=== PATIENT | female | born 1975 | race Caucasian/White ===

== ENCOUNTER → 2016-05-26 | Outpatient (CLI) | payer BC ==
--- NOTE | 2016-05-26 09:05 | US ---
EXAMINATION TYPE: US pelvic complete DATE OF EXAM: 05/26/2016 8:45 AM COMPARISON: No previous CLINICAL HISTORY: N91.2 Amenorrhea. Amenorrhea x 3 months, history of and ablation, 2, para 2 TECHNIQUE: Transabdominal (TA) Date of LMP: 3 months ago EXAM MEASUREMENTS: Uterus: 9.3 x 3.7 x 4.8 cm Endometrial Stripe: 0.5 cm Right Ovary: 3.0 x 2.9 x 2.0 cm Left Ovary: 2.9 x 2.6 x 1.9 cm 1. Uterus: anteverted, heterogeneous echotexture 2. Endometrium: measures 0.5cm, LMP 3 months ago 3. Right Ovary: wnl 4. Left Ovary: wnl 5. Bilateral Adnexa: wnl 6. Posterior cul-de-sac: wnl IMPRESSION: No significant abnormality appreciated.
== END | disposition home or self-care (01) ==
LOC: RADUSWWP 08:29
PROVIDERS: ATTEND Obstetrics & Gynecology
DX: N91.2 Amenorrhea, unspecified (principal)
CPT/HCPCS: 76856; 84439; 84443

== ENCOUNTER → 2016-11-23 | Outpatient (CLI) | payer BC ==
--- NOTE | 2016-11-23 11:34 | MM ---
Reason for exam: additional evaluation requested from prior study. Last mammogram was performed 1 year and 7 months ago. History: Family history of premenopausal breast cancer in aunt at age 40. Took hormonal contraceptives for 10 years. Physical Findings: Nurse did not find any significant physical abnormalities on exam. [facility] Diagnostic Mammo w CAD ISHMAEL Bilateral CC and MLO view(s) were taken. Prior study comparison: May 07, 2015, bilateral MG 3d screening mammo w/cad. July 16, 2011, bilateral digital screening mammo w/CAD. The breast tissue is heterogeneously dense. This may lower the sensitivity of mammography. Prior focal asymmetry is unchanged. No significant new findings when compared with previous films. These results were verbally communicated with the patient and result sheet given to the patient on 11/23/16. ASSESSMENT: Benign, BI-RAD 2 RECOMMENDATION: Routine screening mammogram of both breasts in 1 year.
== END ==
LOC: RADMAMWWP 10:25
PROVIDERS: ATTEND Obstetrics & Gynecology
DX: R92.8 Other abnormal and inconclusive findings on diagnostic imaging of breast (principal)

== ENCOUNTER → 2017-03-14 | Outpatient (CLI) | payer BC ==
--- NOTE | 2017-03-14 09:06 | CT ---
EXAMINATION TYPE: CT cervical spine wo con DATE OF EXAM: 03/14/2017 COMPARISON: NONE HISTORY: Patient complains of neck pain and abnormal xray at doctors office. CT DLP: 490.[address] of the cervical spine was performed with bone and soft tissue window settings submitted . Coronal and sagittal reconstruction is obtained. C2-3, C3-4 and C4-5 are all within normal limits. C5-6: Mild degenerative disc space narrowing. Left paracentral disc protrusion effaces the ventral th ecal sac. Mild left foraminal encroachment. No central stenosis appreciated. C6-7: [id number] degenerative disc space narrowing. Posterior disc bulge with partial encapsula ting spur resulting in disc endplate complex. Mild effacement ventral thecal sac. No definite central stenosis or foraminal encroachment. C7-T1: Within normal limits There is mild reversal of the normal cervical lordosis which can be seen in patients with muscle spas ticity. No evidence for fracture or malalignment. IMPRESSION: 1. Degenerative disc disease as discussed. 2. Left paracentral disc protrusion at C5-6 and disc endplate complex at C6-7. See above.
== END | disposition home or self-care (01) ==
LOC: RADCTMAIN 08:19
PROVIDERS: ATTEND Family Medicine
DX: M48.02 Spinal stenosis, cervical region (principal); M50.222 Other cervical disc displacement at C5-C6 level; M50.322 Other cervical disc degeneration at C5-C6 level; M53.82 Other specified dorsopathies, cervical region
CPT/HCPCS: 72125

== ENCOUNTER 2020-01-11 18:45 | Emergency (ER) | payer BC ==
[2020-01-11 19:10] VITALS: BP 151/95; PULSE 89; RESP 18; TEMP 98.4
--- NOTE | 2020-01-11 19:37 | XR ---
EXAMINATION TYPE: XR abdomen 2V DATE OF EXAM: 01/11/2020 COMPARISON: NONE HISTORY: Epigastric pain TECHNIQUE: 4 views FINDINGS: Supine and upright views were obtained. There are clips from cholecystectomy. There is no s ign of intestinal obstruction or pneumoperitoneum. Fecal pattern is normal. There is no evidence of a mass. Bony structures are intact. There are no pathologic calcifications over the kidneys. IMPRESSION: Nonacute abdomen.
[2020-01-11 20:09] LABS: Basophils # (A) 0.1 k/uL (0-0.2); Basophils % (A) 1 %; Eosinophils # (A) 0.2 k/uL (0-0.7); Eosinophils % (A) 2 %; HCT 38.9 % (34.0-46.0); HGB 12.9 gm/dL (11.4-16.0); Lymphocytes # (A) 1.4 k/uL (1.0-4.8); Lymphocytes % (A) 17 %; MCH 30.2 pg (25.0-35.0); MCHC 33.2 g/dL (31.0-37.0); MCV 90.8 fL (80.0-100.0); Mean Platelet Volume 7.5; Monocytes # (A) 0.5 k/uL (0-1.0); Monocytes % (A) 6 %; Neutrophils # (A) 5.7 k/uL (1.3-7.7); Neutrophils % (A) 72 %; Platelet Count 309 k/uL (150-450); RBC 4.29 m/uL (3.80-5.40); RDW 13.1 % (11.5-15.5); WBC 7.8 k/uL (3.8-10.6)
[2020-01-11 20:16] LABS: ALT 47 U/L (4-34); AST 32 U/L (14-36); African American GFR (CKD) >90 (>60 ml/min/1.73 sqM); Albumin 4.5 g/dL (3.5-5.0); Alkaline Phosphatase 66 U/L (38-126); Amylase 46 U/L (30-110); Anion Gap 8 mmol/L; Blood Urea Nitrogen 13 mg/dL (7-17); Calcium 9.5 mg/dL (8.4-10.2); Carbon Dioxide 22 mmol/L (22-30); Chloride 106 mmol/L (98-107); Glucose 116 mg/dL (74-99); Lipase 43 U/L (23-300); Non-African American GFR(CKD) >90 (>60 ml/min/1.73 sqM); Potassium 4.1 mmol/L (3.5-5.1); Sodium 136 mmol/L (137-145); Total Bilirubin 0.4 mg/dL (0.2-1.3); Total Protein 7.2 g/dL (6.3-8.2)
[2020-01-11] MEDS ORDERED: PANTOPRAZOLE 40 MG/10 ML VIAL IVP STA (21:01)
[2020-01-11] MEDS ORDERED: KETOROLAC 15 MG/ML 1 ML VIAL IVP STA (21:01)
[2020-01-11 21:42] LABS: Appearance,Urine Clear (Clear); Bilirubin,Urine Negative (Negative); Blood,Urine Negative (Negative); Color,Urine Light Yellow; Glucose,Urine (UA) Negative (Negative); Ketones,Urine 2+ (Negative); Leukocyte Esterase,Urine Negative (Negative); Nitrite,Urine Negative (Negative); PH, Urine 5.5 (5.0-8.0); Protein,Urine Negative (Negative); Specific Gravity,Urine 1.015 (1.001-1.035); Urobilinogen,Urine <2.0 mg/dL (<2.0)
--- NOTE | 2020-01-11 22:09 | CT ---
EXAMINATION TYPE: CT abdomen pelvis w con DATE OF EXAM: 01/11/2020 COMPARISON: None HISTORY: Epigastric pain. CT DLP: 1507.7 mGycm Automated exposure control for dose reduction was used. CONTRAST: Performed with IV Contrast, patient injected with 100 mL of Isovue 300. Images were obtained from the diaphragm to the floor the pelvis with IV contrast. Lung bases are clear. There is no pleural effusion. Heart size is normal. Liver spleen stomach pancreas appear normal. Bile ducts are not dilated. There are clips from cholecy stectomy. There is no adrenal mass. Kidneys show satisfactory contrast opacification. There is no hydronephrosi s. Delayed images show normal renal excretion. There is no retroperitoneal adenopathy. Ureters are no t dilated. Bladder distends smoothly. There is no inguinal hernia. Uterus is anteverted. There is no free fluid in the pelvis. Lumbar vertebra show normal spacing and a lignment. Bony pelvis is intact. Hip joints are intact. There are clips from appendectomy. There is no mesenteric edema. There is no ascites or free air. The re is no bowel obstruction. IMPRESSION: Negative exam. I do not see a cause for epigastric pain.
--- NOTE | 2020-01-11 22:49 | ED ---
Abdominal Pain HPI - General Chief Complaint: Abdominal Pain Stated Complaint: Abd pain Time Seen by Provider: 01/11/20 19:05 Source: patient Mode of arrival: ambulatory Limitations: no limitations - History of Present Illness Initial Comments: Patient is a 44-year-old previously healthy female presents emergency department with reported abdominal pain. Reports to epigastric abdominal pain which started around 2 PM today after eating a meal. Patient states this is her fourth episode since August. States the pain is similar. She is status post chol ecystectomy however reports the pain is similar to when she had no stones. Pain is intermittent and colicky. She has been following with her primary care physician for these episodes and was placed on omeprazole for one month. She denies any associated vomiting. No chest pain or shortness of breath. No changes in her bowel or bladder habits. Denies any provocative factors. 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 - Related Data Home Medications Medication Instructions Recorded Confirmed Elderberry Gummy 1 cap PO DAILY 01/11/20 01/11/20 Multivitamins, Thera [Multivitamin 1 tab PO DAILY 01/11/20 01/11/20 (formulary)] Ubrogepant [Ubrelvy] 50 mg PO DAILY PRN 01/11/20 01/11/20 Previous Rx's Medication Instructions Recorded Omeprazole [PriLOSEC] 20 mg PO AC-BRKFST #30 cap 01/11/20 Allergies Allergy/AdvReac Type Severity Reaction Status Date / Time No Known Allergies Allergy Verified 01/11/20 21:11 Review of Systems ROS Statement: Those systems with pertinent positive or pertinent negative responses have been documented in the HPI. ROS Other: All systems not noted in ROS Statement are negative. Past Medical History Past Medical History: No Reported History History of Any Multi-Drug Resistant Organisms: None Reported Past Surgical History: Section, Cholecystectomy Additional Past Surgical History / Comment(s): uterine ablation Past Psychological History: No Psychological Hx Reported Smoking Status: Never smoker Past Alcohol Use History: Occasional Past Drug Use History: None Reported General Exam Limitations: no limitations Course Vital Signs 01/11/20 19:03 Temperature 98.4 F Pulse Rate 89 Respiratory 18 Rate Blood Pressure 151/95 O2 Sat by Pulse 97 Oximetry Medical Decision Making - Medical Decision Making Upon arrival patient is placed into room 15. A thorough history and physical exam was performed. Laboratory studies were conducted. Patient was given Toradol and Protonix for pain. Laboratory studies are unremarkable. CT of the abdomen and pelvis was performed which demonstrates no acute abnormality. Results are discussed with the patient. Did recommend treatment with omep razole. Prescription is sent to the pharmacy. Patient does have a follow-up appointment on the of this month to have an EGD performed by Dr. Sherman. Did recommend calling on Tuesday to see if they have a sooner appointment. Also follow-up with her primary care physician. Return to the emergency room for any new or worsening symptoms. Patient was discharged in stable condition - Lab Data Result diagrams: 01/11/20 19:51 01/11/20 19:51 Lab Results 01/11/20 01/11/20 01/11/20 Range/Units 19:51 19:51 19:51 WBC 7.8 (3.8-10.6) k/uL RBC 4.29 (3.80-5.40) m/uL Hgb 12.9 (11.4-16.0) gm/dL Hct 38.9 (34.0-46.0) % MCV 90.8 (80.0-100.0) fL MCH 30.2 (25.0-35.0) pg MCHC 33.2 (31.0-37.0) g/dL RDW 13.1 (11.5-15.5) % Plt Count 309 (150-450) k/uL MPV 7.5 Neutrophils % 72 % Lymphocytes % 17 % Monocytes % 6 % Eosinophils % 2 % Basophils % 1 % Neutrophils # 5.7 (1.3-7.7) k/uL Lymphocytes # 1.4 (1.0-4.8) k/uL Monocytes # 0.5 (0-1.0) k/uL Eosinophils # 0.2 (0-0.7) k/uL Basophils # 0.1 (0-0.2) k/uL Sodium 136 L (137-145) mmol/L Potassium 4.1 (3.5-5.1) mmol/L Chloride 106 (98-107) mmol/L Carbon Dioxide 22 (22-30) mmol/L Anion Gap 8 mmol/L BUN 13 (7-17) mg/dL Creatinine 0.71 (0.52-1.04) mg/dL Est GFR (CKD-EPI)AfAm >90 (>60 ml/min/1.73 sqM) Est GFR (CKD-EPI)NonAf >90 (>60 ml/min/1.73 sqM) Glucose 116 H (74-99) mg/dL Plasma Lactic Acid Patricio 1.2 (0.7-2.0) mmol/L Calcium 9.5 (8.4-10.2) mg/dL Total Bilirubin 0.4 (0.2-1.3) mg/dL AST 32 (14-36) U/L ALT 47 H (4-34) U/L Alkaline Phosphatase 66 (38-126) U/L Total Protein 7.2 (6.3-8.2) g/dL Albumin 4.5 (3.5-5.0) g/dL Amylase 46 (30-110) U/L Lipase 43 (23-300) U/L Urine Color Urine Appearance (Clear) Urine pH (5.0-8.0) Ur Specific [place] (1.001-1.035) Urine Protein (Negative) Urine Glucose (UA) (Negative) Urine Ketones (Negative) Urine Blood (Negative) Urine Nitrite (Negative) Urine Bilirubin (Negative) Urine Urobilinogen (<2.0) mg/dL Ur Leukocyte Esterase (Negative) 01/11/20 Range/Units 21:15 WBC (3.8-10.6) k/uL RBC (3.80-5.40) m/uL Hgb (11.4-16.0) gm/dL Hct (34.0-46.0) % MCV (80.0-100.0) fL MCH (25.0-35.0) pg MCHC (31.0-37.0) g/dL RDW (11.5-15.5) % Plt Count (150-450) k/uL MPV Neutrophils % % Lymphocytes % % Monocytes % % Eosinophils % % Basophils % % Neutrophils # (1.3-7.7) k/uL Lymphocytes # (1.0-4.8) k/uL Monocytes # (0-1.0) k/uL Eosinophils # (0-0.7) k/uL Basophils # (0-0.2) k/uL Sodium (137-145) mmol/L Potassium (3.5-5.1) mmol/L Chloride (98-107) mmol/L Carbon Dioxide (22-30) mmol/L Anion Gap mmol/L BUN (7-17) mg/dL Creatinine (0.52-1.04) mg/dL Est GFR (CKD-EPI)AfAm (>60 ml/min/1.73 sqM) Est GFR (CKD-EPI)NonAf (>60 ml/min/1.73 sqM) Glucose (74-99) mg/dL Plasma Lactic Acid Patricio (0.7-2.0) mmol/L Calcium (8.4-10.2) mg/dL Total Bilirubin (0.2-1.3) mg/dL AST (14-36) U/L ALT (4-34) U/L Alkaline Phosphatase (38-126) U/L Total Protein (6.3-8.2) g/dL Albumin (3.5-5.0) g/dL Amylase (30-110) U/L Lipase (23-300) U/L Urine Color Light Yellow Urine Appearance Clear (Clear) Urine pH 5.5 (5.0-8.0) Ur Specific [place] 1.015 (1.001-1.035) Urine Protein Negative (Negative) Urine Glucose (UA) Negative (Negative) Urine Ketones 2+ H (Negative) Urine Blood Negative (Negative) Urine Nitrite Negative (Negative) Urine Bilirubin Negative (Negative) Urine Urobilinogen <2.0 (<2.0) mg/dL Ur Leukocyte Esterase Negative (Negative) Disposition Clinical Impression: Epigastric pain Disposition: HOME SELF-CARE Condition: Stable Instructions (If sedation given, give patient instructions): Epigastric Pain (ED) Additional Instructions: Please follow up with your primary care physician and surgeon. Return to the ED for any new or worsening symptoms. Prescriptions: Omeprazole [PriLOSEC] 20 mg PO AC-BRKFST #30 cap Is patient prescribed a controlled substance at d/c from ED?: No Referrals: Madi Quintana MD [Primary Care Provider] - 1-2 days Carlos Navarro MD [Medical Doctor] - 1-2 days Time of Disposition: 22:49
== END 2020-01-11 23:25 | disposition home or self-care (01) ==
LOC: EC 18:45
DX: R10.13 Epigastric pain (principal); Z90.49 Acquired absence of other specified parts of digestive tract
CPT/HCPCS: 36415; 80053; 82150; 83605; 83690; 85025; 81003; 74019; 74177; 99284; 96374; 96375; J1885; C9113; Q9967

== ENCOUNTER 2020-01-29 10:08 | Day surgery (SDC) | payer BC ==
[2020-01-28 08:51] VITALS: BMI 35.6
[~2020-01-29 10:08] MED LIST: LACTATED RINGERS 1,000 ML IV SCH; LIDOCAINE 1% (10MG/ML) FOR IV START INTRADERMA PRN
[2020-01-29 10:37] VITALS: TEMP 98
[2020-01-29] MEDS ORDERED: PROPOFOL 10 MG/ML 50 ML VIAL IV ONE (11:35)
--- NOTE | 2020-01-29 11:42 | P.GSHP ---
History of Present Illness H&P Date: 01/29/20 Chief Complaint: Abdominal pain Patient here today for upper endoscopy. She has had complaints of epigastric pain and slightly to the right for the last several months. Usually comes on as an attack that lasted from 5-12 hours at a time. We'll have an attack every month or 2. No nausea or vomiting. No change in bowel habits. No rectal bleeding or melena. Past Medical History Past Medical History: No Reported History Additional Past Medical History / Comment(s): stomach pains History of Any Multi-Drug Resistant Organisms: None Reported Past Surgical History: Section, Cholecystectomy Additional Past Surgical History / Comment(s): uterine ablation Past Anesthesia/Blood Transfusion Reactions: No Reported Reaction Smoking Status: Never smoker - Past Family History Mother Family Medical History: AFIB, Cancer Additional Family Medical History / Comment(s): skin CA Father Family Medical History: AFIB Medications and Allergies Home Medications Medication Instructions Recorded Confirmed Type Elderberry Gummy 1 cap PO DAILY 01/11/20 01/28/20 History Multivitamins, Thera [Multivitamin 1 tab PO DAILY 01/11/20 01/28/20 History (formulary)] Omeprazole [PriLOSEC] 20 mg PO AC-BRKFST #30 cap 01/11/20 01/28/20 Rx Ubrogepant [Ubrelvy] 50 mg PO DAILY PRN 01/11/20 01/28/20 History Everyday Relief Supplement 1 tab PO TID-W/MEALS 01/28/20 History Allergies Allergy/AdvReac Type Severity Reaction Status Date / Time No Known Allergies Allergy Verified 01/29/20 10:27 Surgical - Exam Vital Signs Temp Pulse Resp BP Pulse Ox 98 F 88 16 129/69 97 01/29/20 10:36 01/29/20 10:36 01/29/20 10:36 01/29/20 10:36 01/29/20 10:36 Physical exam: General: Well-developed, well-nourished HEENT: Normocephalic, sclerae nonicteric Abdomen: Nontender, nondistended Extremities: No edema Neuro: Alert and oriented Assessment and Plan (1) Epigastric pain Narrative/Plan: Will proceed with upper endoscopy. Current Visit: No Status: Acute Code(s): R10.13 - EPIGASTRIC PAIN SNOMED Code(s): 22786673
--- NOTE | 2020-01-29 11:58 | P.PCN ---
Date of Procedure: 01/29/20 Procedure(s) Performed: Preoperative Dx: Epigastric pain Postoperative Dx: Gastritis, small hiatal hernia Procedure: EGD with Bx Anesthesia: Sedation Endoscopist: Dr. Navarro Specimens: Antrum Endoscopic Procedure: The patient was on the endoscopy table in the left decubitus position. The Olympus gastroscope was inserted into the oropharynx and passed under direct visualization to the region of the third portion of the duodenum. From that point the scope was slowly withdrawn inspecting all surfaces carefully. There were no neoplastic inflammatory or polypoid lesions throughout the duodenum. The pylorus was widely patent. The stomach was carefully inspected. There was gastritis present. A biopsy of the antrum took place to rule out H. pylori. Retroflexion revealed a small hiatal hernia. The GE junction was present 1.5-2 cm above the diaphragmatic hiatus. The esophagus itself appeared normal. The patient was then taken to the recovery room in stable condition per anesthesia guidelines. Recommendations: Await biopsy results. Continue workup of the patient's pain.
[2020-01-29 12:17] VITALS: BP 125/86; PULSE 71; RESP 18
== END 2020-01-29 12:34 | disposition home or self-care (01) ==
LOC: ORWHC2ENDO 10:08
PROVIDERS: ATTEND Surgery
DX: K29.00 Acute gastritis without bleeding (principal); K31.89 Other diseases of stomach and duodenum; K44.9 Diaphragmatic hernia without obstruction or gangrene; G43.909 Migraine, unspecified, not intractable, without status migrainosus; Z98.890 Other specified postprocedural states; Z90.49 Acquired absence of other specified parts of digestive tract; Z79.899 Other long term (current) drug therapy; Z82.49 Family history of ischemic heart disease and other diseases of the circulatory system; Z80.8 Family history of malignant neoplasm of other organs or systems
CPT/HCPCS: 81025; 88305; 43239; J2704

== ENCOUNTER → 2020-04-03 | Outpatient (CLI) | payer BC ==
--- NOTE | 2020-04-03 10:25 | MR ---
EXAMINATION TYPE: MR MRCP DATE OF EXAM: 04/03/2020 COMPARISON: CT abdomen and pelvis January 11, 2020 HISTORY: epigastric pain, Gallbladder removed Standard multiplanar, multisequence MRI departmental protocol Multiplanar, multisequence images of the abdomen were acquired. Diffusion weighted imaging was perfor med. Thin and thick slice MRCP imaging is performed on the MRI scanner. FINDINGS: Liver/gallbladder/pancreas/biliary system: Gallbladder noted surgically absent. Liver remains normal in size. There is diffuse signal dropout consistent with mild to moderate diffuse fatty infiltration. No concerning solid or cystic intrahepatic mass is identified. Pancreas is normal in size. MRCP imag ing shows no suspicious intrahepatic or extrahepatic biliary dilatation. Overlying crossing vessel fl ow is likely present just below the ranjith hepatis causing linear artifact coronal image 22 series 301 and MRCP imaging. No round ductal stones. Pancreatic duct not well seen due to poor distention. Visu alized portions unremarkable. Other: Lung bases remain grossly clear. The spleen and both adrenal glands appear within normal limit s. Persistent fullness right renal pelvis without calyceal dilatation or extrarenal pelvis. There eleanor ears to be persistent asymmetric mild left-sided hydronephrosis. Appendix noted surgically absent. No suspicious small or large bowel dilatation. No intra-abdominal a scites. Visualized osseous structures are intact. No suspicious greater than 1 cm intra-abdominal carol nopathy. IMPRESSION: [id number] diffuse fatty infiltration of liver. No intrahepatic or extrahepatic niels iary dilatation. Mild asymmetric left-sided hydronephrosis is thought present and is felt also presen t on review of comparison CT. No delayed excretion is noted.
== END | disposition home or self-care (01) ==
LOC: RADMRIMAIN 08:20
PROVIDERS: ATTEND Internal Medicine Gastroenterology
DX: K76.0 Fatty (change of) liver, not elsewhere classified (principal); N13.30 Unspecified hydronephrosis
CPT/HCPCS: 74181

== ENCOUNTER → 2020-10-06 | Outpatient (CLI) | payer BC ==
[2020-10-06 21:33] LABS: African American GFR (CKD) 126.7 (60.0-200.0); Albumin 4.6 g/dL (3.80-4.90); Albumin/Globulin Ratio 2.19 (1.60-3.17); Anion Gap 9.5 mmol/L (4.00-12.00); BUN/Creat Ratio 13.33 Ratio (12.00-20.00); Carbon Dioxide 23.5 mmol/L (21.6-31.8); Globulin 2.1 g/dL (1.6-3.3); Non-African American GFR(CKD) 109.3 (60.0-200.0); Potassium 4.1 mmol/L (3.5-5.5); Total Bilirubin 0.6 mg/dL (0.2-1.2); Total Protein 6.7 g/dL (6.2-8.2)
== END | disposition home or self-care (01) ==
LOC: LABWHC1 11:35
PROVIDERS: ATTEND Internal Medicine Gastroenterology
DX: R10.13 Epigastric pain (principal)
CPT/HCPCS: 36415; 80053

== ENCOUNTER 2021-04-20 10:34 | Observation (INO) | payer BC ==
[2021-04-20 12:09] LABS: ALT 173 U/L (4-34); AST 156 U/L (14-36); African American GFR (CKD) >90 (>60 ml/min/1.73 sqM); Albumin 4.8 g/dL (3.5-5.0); Alkaline Phosphatase 81 U/L (38-126); Amylase 47 U/L (30-110); Anion Gap 9 mmol/L; Blood Urea Nitrogen 6 mg/dL (7-17); Calcium 9.3 mg/dL (8.4-10.2); Carbon Dioxide 22 mmol/L (22-30); Chloride 106 mmol/L (98-107); Glucose 120 mg/dL (74-99); Lipase 28 U/L (23-300); Non-African American GFR(CKD) >90 (>60 ml/min/1.73 sqM); Potassium 3.9 mmol/L (3.5-5.1); Sodium 137 mmol/L (137-145); Total Bilirubin 1.3 mg/dL (0.2-1.3); Total Protein 7.8 g/dL (6.3-8.2)
[2021-04-20 12:14] LABS: Basophils % (A) 0 %; Eosinophils # (A) 0.1 k/uL (0-0.7); Eosinophils % (A) 1 %; HCT 44.4 % (34.0-46.0); HGB 14.8 gm/dL (11.4-16.0); Lymphocytes # (A) 1.3 k/uL (1.0-4.8); Lymphocytes % (A) 11 %; MCH 30.5 pg (25.0-35.0); MCHC 33.3 g/dL (31.0-37.0); MCV 91.4 fL (80.0-100.0); Mean Platelet Volume 7.8; Monocytes # (A) 0.8 k/uL (0-1.0); Monocytes % (A) 7 %; Neutrophils # (A) 9.4 k/uL (1.3-7.7); Neutrophils % (A) 81 %; Platelet Count 314 k/uL (150-450); RBC 4.86 m/uL (3.80-5.40); RDW 13.5 % (11.5-15.5); WBC 11.6 k/uL (3.8-10.6)
--- NOTE | 2021-04-20 12:22 | XR ---
EXAMINATION TYPE: XR KUB DATE OF EXAM: 04/20/2021 Comparison: None Clinical History: 45-year-old female right flank pain, abdominal pain Findings: Lung bases are clear. No evidence for free intraperitoneal air. Cholecystectomy clips. Dropped clip in the right lower quadrant. No dilated small bowel or air-fluid levels. No significant stool burden. No suspicious calcifications are radiographically apparent. Impression: No evidence for free air or bowel obstruction. No significant stool burden. Previous cholecystectomy. No suspicious calcification clearly identified.
[2021-04-20] MEDS ORDERED: SODIUM CHLORIDE 0.9% 500 ML 500 ML IV STA (12:27)
[2021-04-20] MEDS ORDERED: SODIUM CHLORIDE 0.9% 1,000 ML IV ONE ×2 (12:28→14:55)
[2021-04-20 12:34] LABS: Appearance,Urine Clear (Clear); Bacteria,Urine Rare /hpf; Bilirubin,Urine Negative (Negative); Blood,Urine Negative (Negative); Color,Urine Yellow; Glucose,Urine (UA) Negative (Negative); Ketones,Urine Negative (Negative); Leukocyte Esterase,Urine Negative (Negative); Mucus,Urine Moderate /hpf; Nitrite,Urine Negative (Negative); Protein,Urine 1+ (Negative); Specific Gravity,Urine 1.021 (1.001-1.035); Squamous Epithelial Cell,Urine 1 /hpf (0-4); WBC,Urine 2 /hpf (0-5)
--- NOTE | 2021-04-20 13:23 | ED ---
General Adult HPI - General Chief complaint: Abdominal Pain Stated complaint: Abd pain Time Seen by Provider: 04/20/21 12:00 Source: patient, RN notes reviewed, old records reviewed Mode of arrival: ambulatory Limitations: no limitations - History of Present Illness Initial comments: This is a 45-year-old female presents emergency Department complaining of right lower quadrant abdominal pain. Patient states couple days ago she had epigastric abdominal pain which she has had chronically and is under the care of Dr. Charles Cormier. Patient states she had no episode of this but after that subsided she started having mid abdominal pain which is now more on the right lower quadrant and right flank. Patient states had diarrhea and she vomited one time. Patient denies any fever chills per patient denies any dysuria hematuria urinary frequency. Patient denies any vaginal bleeding or vaginal drainage. Patient denies any back pain. Patient denies any chest pain with deep breathing shortness of breath. - Related Data Home Medications Medication Instructions Recorded Confirmed Elderberry Gummy 1 cap PO DAILY 01/11/20 01/28/20 Multivitamins, Thera [Multivitamin 1 tab PO DAILY 01/11/20 01/28/20 (formulary)] Ubrogepant [Ubrelvy] 50 mg PO DAILY PRN 01/11/20 01/28/20 Everyday Relief Supplement 1 tab PO TID-W/MEALS 01/28/20 Previous Rx's Medication Instructions Recorded Omeprazole [PriLOSEC] 20 mg PO AC-BRKFST #30 cap 01/11/20 Allergies Allergy/AdvReac Type Severity Reaction Status Date / Time No Known Allergies Allergy Verified 04/20/21 11:09 Review of Systems ROS Statement: Those systems with pertinent positive or pertinent negative responses have been documented in the HPI. ROS Other: All systems not noted in ROS Statement are negative. Past Medical History Past Medical History: No Reported History Additional Past Medical History / Comment(s): stomach pains History of Any Multi-Drug Resistant Organisms: None Reported Past Surgical History: Section, Cholecystectomy Additional Past Surgical History / Comment(s): uterine ablation Past Anesthesia/Blood Transfusion Reactions: No Reported Reaction Past Psychological History: No Psychological Hx Reported Smoking Status: Never smoker - Past Family History Mother Family Medical History: AFIB, Cancer Additional Family Medical History / Comment(s): skin CA Father Family Medical History: AFIB General Exam - General Exam Comments Initial Comments: GENERAL: Patient is well-developed and well-nourished. Patient is nontoxic and well- hydrated and is in mild distress. ENT: Neck is soft and supple. No significant lymphadenopathy is noted. Oropharynx is clear. Moist mucous membranes. Neck has full range of motion without eliciting any pain. EYES: The sclera were anicteric and conjunctiva were pink and moist. Extraocular movements were intact and pupils were equal round and reactive to light. Eyelids were unremarkable. PULMONARY: Unlabored respirations. Good breath sounds bilaterally. No audible rales rhonchi or wheezing was noted. CARDIOVASCULAR: There is a regular rate and rhythm without any murmurs gallops or rubs. ABDOMEN: Patient is quite tender in the right flank and right lower quadrant area. Patient has rebound tenderness in this area. SKIN: Skin is clear with no lesions or rashes and otherwise unremarkable. NEUROLOGIC: Patient is alert and oriented x3. Cranial nerves II through XII are grossly intact. Motor and sensory are also intact. Normal speech, volume and content. Symmetrical smile. MUSCULOSKELETAL: Normal extremities with adequate strength and full range of motion. No lower extremity swelling or edema. No calf tenderness. LYMPHATICS: No significant lymphadenopathy is noted PSYCHIATRIC: Normal psychiatric evaluation. Limitations: no limitations Course Vital Signs 04/20/21 11:04 Temperature 98.3 F Pulse Rate 108 H Respiratory 18 Rate Blood Pressure 125/75 O2 Sat by Pulse 98 Oximetry Medical Decision Making - Medical Decision Making computed tomography scan shows acute appendicitis. I spoke with but he agreed to admit the patient admitted the patient and I started the patient on antibiotics. - Lab Data Result diagrams: 04/20/21 11:43 04/20/21 11:43 Lab Results 04/20/21 04/20/21 04/20/21 Range/Units 11:43 11:43 11:43 WBC 11.6 H (3.8-10.6) k/uL RBC 4.86 (3.80-5.40) m/uL Hgb 14.8 (11.4-16.0) gm/dL Hct 44.4 (34.0-46.0) % MCV 91.4 (80.0-100.0) fL MCH 30.5 (25.0-35.0) pg MCHC 33.3 (31.0-37.0) g/dL RDW 13.5 (11.5-15.5) % Plt Count 314 (150-450) k/uL MPV 7.8 Neutrophils % 81 % Lymphocytes % 11 % Monocytes % 7 % Eosinophils % 1 % Basophils % 0 % Neutrophils # 9.4 H (1.3-7.7) k/uL Lymphocytes # 1.3 (1.0-4.8) k/uL Monocytes # 0.8 (0-1.0) k/uL Eosinophils # 0.1 (0-0.7) k/uL Basophils # 0.0 (0-0.2) k/uL Sodium 137 (137-145) mmol/L Potassium 3.9 (3.5-5.1) mmol/L Chloride 106 (98-107) mmol/L Carbon Dioxide 22 (22-30) mmol/L Anion Gap 9 mmol/L BUN 6 L (7-17) mg/dL Creatinine 0.54 (0.52-1.04) mg/dL Est GFR (CKD-EPI)AfAm >90 (>60 ml/min/1.73 sqM) Est GFR (CKD-EPI)NonAf >90 (>60 ml/min/1.73 sqM) Glucose 120 H (74-99) mg/dL Plasma Lactic Acid Patricio (0.7-2.0) mmol/L Calcium 9.3 (8.4-10.2) mg/dL Total Bilirubin 1.3 (0.2-1.3) mg/dL AST 156 H (14-36) U/L ALT 173 H (4-34) U/L Alkaline Phosphatase 81 (38-126) U/L Total Protein 7.8 (6.3-8.2) g/dL Albumin 4.8 (3.5-5.0) g/dL Amylase 47 (30-110) U/L Lipase 28 (23-300) U/L Urine Color Yellow Urine Appearance Clear (Clear) Urine pH 6.0 (5.0-8.0) Ur Specific [place] 1.021 (1.001-1.035) Urine Protein 1+ H (Negative) Urine Glucose (UA) Negative (Negative) Urine Ketones Negative (Negative) Urine Blood Negative (Negative) Urine Nitrite Negative (Negative) Urine Bilirubin Negative (Negative) Urine Urobilinogen 3.0 (<2.0) mg/dL Ur Leukocyte Esterase Negative (Negative) Urine WBC 2 (0-5) /hpf Ur Squamous Epith Cells 1 (0-4) /hpf Urine Bacteria Rare H (None) /hpf Urine Mucus Moderate H (None) /hpf 04/20/21 Range/Units 12:46 WBC (3.8-10.6) k/uL RBC (3.80-5.40) m/uL Hgb (11.4-16.0) gm/dL Hct (34.0-46.0) % MCV (80.0-100.0) fL MCH (25.0-35.0) pg MCHC (31.0-37.0) g/dL RDW (11.5-15.5) % Plt Count (150-450) k/uL MPV Neutrophils % % Lymphocytes % % Monocytes % % Eosinophils % % Basophils % % Neutrophils # (1.3-7.7) k/uL Lymphocytes # (1.0-4.8) k/uL Monocytes # (0-1.0) k/uL Eosinophils # (0-0.7) k/uL Basophils # (0-0.2) k/uL Sodium (137-145) mmol/L Potassium (3.5-5.1) mmol/L Chloride (98-107) mmol/L Carbon Dioxide (22-30) mmol/L Anion Gap mmol/L BUN (7-17) mg/dL Creatinine (0.52-1.04) mg/dL Est GFR (CKD-EPI)AfAm (>60 ml/min/1.73 sqM) Est GFR (CKD-EPI)NonAf (>60 ml/min/1.73 sqM) Glucose (74-99) mg/dL Plasma Lactic Acid Patricio 1.0 (0.7-2.0) mmol/L Calcium (8.4-10.2) mg/dL Total Bilirubin (0.2-1.3) mg/dL AST (14-36) U/L ALT (4-34) U/L Alkaline Phosphatase (38-126) U/L Total Protein (6.3-8.2) g/dL Albumin (3.5-5.0) g/dL Amylase (30-110) U/L Lipase (23-300) U/L Urine Color Urine Appearance (Clear) Urine pH (5.0-8.0) Ur Specific [place] (1.001-1.035) Urine Protein (Negative) Urine Glucose (UA) (Negative) Urine Ketones (Negative) Urine Blood (Negative) Urine Nitrite (Negative) Urine Bilirubin (Negative) Urine Urobilinogen (<2.0) mg/dL Ur Leukocyte Esterase (Negative) Urine WBC (0-5) /hpf Ur Squamous Epith Cells (0-4) /hpf Urine Bacteria (None) /hpf Urine Mucus (None) /hpf Disposition Clinical Impression: Acute appendicitis Disposition: ADMITTED IP TO THIS HOSP Referrals: Madi Quintana MD [Primary Care Provider] - 1-2 days Time of Disposition: 14:55
--- NOTE | 2021-04-20 14:05 | CT ---
EXAMINATION TYPE: CT abdomen pelvis w con DATE OF EXAM: 04/20/2021 COMPARISON: 01/11/2020 HISTORY: 45-year-old female Right lower quadrant pain x 2 days TECHNIQUE: Contiguous axial scanning of the abdomen and pelvis following administration of 100 ml Iso myesha 300 IV contrast. Delayed images through the kidneys and coronal/sagittal reconstructions perform ed. CT DLP: 1420.8 mGycm Automated exposure control for dose reduction was used. FINDINGS: Heart normal size without pericardial effusion. Lung bases clear without pleural effusion. Tiny hiatal hernia. Low attenuation of the hepatic parenchyma suggesting fatty infiltration. Liver is enlarged at 20.3 cm likely in part due to the presence of a Domi's lobe. Cholecystectomy clips. No blurry ductal dilat ation. Portal venous system is patent. Adrenal glands, spleen, and pancreas within normal limits. Similar fullness of the bilateral renal collecting systems probably due to extrarenal pelvis. Retroao rtic left renal vein. No dilated small bowel or free air. Thickened and inflamed appendix with a caliber up to nearly 1.2 cm. Moderate surrounding inflammatory fat stranding and stranding edema. There are small reactive right lower quadrant mesenteric lymph no christiano measuring up to 6 mm. Bladder incompletely distended. Prominent follicular change in the ovaries. 1.9 cm hypodense lesion r ight ovary, axial image 76 and coronal image 55 could represent a hemorrhagic cyst. Numerous left-burt ed pelvic phleboliths. No abnormal fluid collection otherwise seen in the pelvis or pelvic lymphadeno ignacio. Bones: Mild degenerative change at the hips. Facet arthropathy lower lumbar spine. IMPRESSION: 1. EXAM POSITIVE FOR ACUTE APPENDICITIS. THERE IS MODERATE SURROUNDING INFLAMMATION AND SOME STRANDY EDEMA BUT NO ABSCESS OR FREE AIR. 2. HEPATIC STEATOSIS. 3. SIMILAR FULLNESS OF THE BILATERAL RENAL COLLECTING SYSTEMS POSSIBLY DUE TO EXTRARENAL PELVES. KRYSTYNA ELATE WITH PATIENT'S KIDNEY FUNCTION. 4. PROMINENT FOLLICULAR CHANGE IN THE RIGHT OVARY WITH A POSSIBLE 1.9 CM HEMORRHAGIC CYST. 6 - 8 WEEK FOLLOW-UP PELVIC ULTRASOUND TO ENSURE RESOLUTION AND EXCLUDE ANY ENLARGING LESIONS.
[2021-04-20] MEDS ORDERED: PIPERACILLIN-TAZOBACTAM 3.375 GM in SODIUM CHLORIDE 0.9% 100 ML IVPB STA (14:56)
[2021-04-20] MEDS ORDERED: LACTATED RINGERS 1,000 ML IV ONE ×2 (16:59→19:24)
[2021-04-20] MEDS ORDERED: IV FLUID CONTINUATION 100 ML IV ONE (16:59)
[2021-04-20] MEDS ORDERED: DEXAMETHASONE SOD PHOSPHATE 4 MG/ML 1 ML VIAL IV ONE (17:17)
[2021-04-20] MEDS ORDERED: ONDANSETRON 4 MG/2 ML VIAL IVP ONE (17:17)
[2021-04-20] MEDS ORDERED: HEPARIN SODIUM,PORCINE 5,000 UNIT/ML 1 ML VIAL SQ ONE (17:18)
[2021-04-20] MEDS ORDERED: SCOPOLAMINE 1.5MG/72HR PATCH TRANSDERM ONE (17:18)
[2021-04-20] MEDS ORDERED: NEOSTIGMINE 1 MG/ML 10 ML VIAL ONE (17:31)
[2021-04-20] MEDS ORDERED: GLYCOPYRROLATE 0.2 MG/ML 2 ML VIAL ONE (17:31)
[2021-04-20] MEDS ORDERED: LIDOCAINE 1% INJ 10MG/ML (20 ML MDV) ONE (17:31)
[2021-04-20] MEDS ORDERED: ROCURONIUM 10 MG/ML (5 ML VIAL) IV ONE (17:31)
[2021-04-20] MEDS ORDERED: HYDROmorphone (PF) 1 MG/ML ONE (17:31)
[2021-04-20] MEDS ORDERED: MIDAZOLAM 2 MG/2 ML VIAL ONE (17:31)
[2021-04-20] MEDS ORDERED: SUCCINYLCHOLINE CHLORIDE 100 MG/5 ML SYR IV ONE (17:31)
[2021-04-20] MEDS ORDERED: fentaNYL (PF) 50 MCG/ML 2 ML AMP ONE (17:31)
[2021-04-20] MEDS ORDERED: PROPOFOL 10 MG/ML 20 ML VIAL IV ONE (17:31)
--- NOTE | 2021-04-20 17:33 | P.GSHP ---
History of Present Illness H&P Date: 04/20/21 Chief Complaint: Acute appendicitis 45 row female comes in the hospital complaining of upper abdominal pain that radiated down to the right lower abdomen. Patient has had episodes similar to this however normally does not involve the right lower quadrant. She did have an episode of vomiting. Some loose stools. CAT scan was obtained which demonstrated evidence of acute appendicitis. The patient has elevated liver enzymes as well. History of previous cholecystectomy. Looking back at the labs previously her transaminases were previously normal. White blood cell count mildly elevated. - Review of Systems Comment: The patient denies any acute changes in vision or hearing, no dysphagia or odynophagia, no chest pain or shortness of breath, no dysuria or hematuria, no headache, no runny nose, no rectal bleeding or melena, no unexplained weight loss Past Medical History Past Medical History: No Reported History Additional Past Medical History / Comment(s): stomach pains History of Any Multi-Drug Resistant Organisms: None Reported Past Surgical History: Section, Cholecystectomy Additional Past Surgical History / Comment(s): uterine ablation Past Anesthesia/Blood Transfusion Reactions: No Reported Reaction Past Psychological History: No Psychological Hx Reported Smoking Status: Never smoker - Past Family History Mother Family Medical History: AFIB, Cancer Additional Family Medical History / Comment(s): skin CA Father Family Medical History: AFIB Medications and Allergies Home Medications Medication Instructions Recorded Confirmed Type Ubrogepant [Ubrelvy] 50 mg PO DAILY PRN 01/11/20 04/20/21 History Allergies Allergy/AdvReac Type Severity Reaction Status Date / Time No Known Allergies Allergy Verified 04/20/21 15:45 Surgical - Exam Vital Signs Temp Pulse Resp BP Pulse Ox 98.3 F 108 H 18 125/75 98 04/20/21 11:04 04/20/21 11:04 04/20/21 11:04 04/20/21 11:04 04/20/21 11:04 Physical exam: General: Well-developed, well-nourished HEENT: Normocephalic, sclerae nonicteric Abdomen: Right lower quadrant tenderness, nondistended Extremities: No edema Neuro: Alert and oriented Results - Labs 04/20/21 11:43 04/20/21 11:43 Abnormal Lab Results - Last 24 Hours (Table) 04/20/21 04/20/21 04/20/21 Range/Units 11:43 11:43 11:43 WBC 11.6 H (3.8-10.6) k/uL Neutrophils # 9.4 H (1.3-7.7) k/uL BUN 6 L (7-17) mg/dL Glucose 120 H (74-99) mg/dL AST 156 H (14-36) U/L ALT 173 H (4-34) U/L Urine Protein 1+ H (Negative) Urine Bacteria Rare H (None) /hpf Urine Mucus Moderate H (None) /hpf Diabetes panel 04/20/21 Range/Units 11:43 Sodium 137 (137-145) mmol/L Potassium 3.9 (3.5-5.1) mmol/L Chloride 106 (98-107) mmol/L Carbon Dioxide 22 (22-30) mmol/L BUN 6 L (7-17) mg/dL Creatinine 0.54 (0.52-1.04) mg/dL Glucose 120 H (74-99) mg/dL Calcium 9.3 (8.4-10.2) mg/dL AST 156 H (14-36) U/L ALT 173 H (4-34) U/L Alkaline Phosphatase 81 (38-126) U/L Total Protein 7.8 (6.3-8.2) g/dL Albumin 4.8 (3.5-5.0) g/dL Calcium panel 04/20/21 Range/Units 11:43 Calcium 9.3 (8.4-10.2) mg/dL Albumin 4.8 (3.5-5.0) g/dL Pituitary panel 04/20/21 Range/Units 11:43 Sodium 137 (137-145) mmol/L Potassium 3.9 (3.5-5.1) mmol/L Chloride 106 (98-107) mmol/L Carbon Dioxide 22 (22-30) mmol/L BUN 6 L (7-17) mg/dL Creatinine 0.54 (0.52-1.04) mg/dL Glucose 120 H (74-99) mg/dL Calcium 9.3 (8.4-10.2) mg/dL Adrenal panel 04/20/21 Range/Units 11:43 Sodium 137 (137-145) mmol/L Potassium 3.9 (3.5-5.1) mmol/L Chloride 106 (98-107) mmol/L Carbon Dioxide 22 (22-30) mmol/L BUN 6 L (7-17) mg/dL Creatinine 0.54 (0.52-1.04) mg/dL Glucose 120 H (74-99) mg/dL Calcium 9.3 (8.4-10.2) mg/dL Total Bilirubin 1.3 (0.2-1.3) mg/dL AST 156 H (14-36) U/L ALT 173 H (4-34) U/L Alkaline Phosphatase 81 (38-126) U/L Total Protein 7.8 (6.3-8.2) g/dL Albumin 4.8 (3.5-5.0) g/dL Assessment and Plan (1) Acute appendicitis Narrative/Plan: 45-year-old female with acute appendicitis. Clinical scenario reviewed with the patient and her . We'll proceed with laparoscopic, possible open appendectomy at this time. She'll bleeding, infection, abscess, staple line dehiscence, bladder bowel and ureteral injury, hernia reviewed. She understands and wishes to proceed. Current Visit: Yes Status: Acute Code(s): K35.80 - UNSPECIFIED ACUTE APPENDICITIS SNOMED Code(s): 02208970
[2021-04-20] MEDS ORDERED: BUPIVACAIN-EPI 0.25%-1:200,000 30 ML VIAL SQ ONE (17:56)
[2021-04-20] MEDS ORDERED: NALOXONE 0.4 MG/ML 1 ML VIAL IV PRN (18:37)
[2021-04-20] MEDS ORDERED: ACETAMINOPHEN TAB 325 MG TAB PO PRN (18:38)
[2021-04-20] MEDS ORDERED: ONDANSETRON 4 MG/2 ML VIAL IVP PRN (18:38)
[2021-04-20] MEDS ORDERED: HYDROmorphone 0.5 MG/0.5 ML SYRINGE IVP PRN (18:38)
[2021-04-20] MEDS ORDERED: KETOROLAC 15 MG/ML 1 ML VIAL IVP ONE (18:40)
--- NOTE | 2021-04-20 18:41 | P.OP ---
Date of Procedure: 04/20/21 Procedure(s) Performed: PREOPERATIVE DIAGNOSIS: Acute appendicitis POSTOPERATIVE DIAGNOSIS: Contained ruptured acute appendicitis PROCEDURE: Laparoscopic appendectomy SURGEON: Melanie EBL: 5 mL ANESTHESIA: General COMPLICATIONS: None OPERATIVE PROCEDURE: The patient was brought and placed on the operating table in the supine position. The patient was placed under general anesthesia. The abdomen was prepped and draped in the usual sterile fashion. I was able to palpate a indurated area in the right lower quadrant prior to incision. A small vertical infraumbilical incision was made. The fascia was retracted anteriorly with Coupland forceps. The Veress needle was advanced into the peritoneal cavity. The saline drop test was normal. Insufflation took place to 15 mmHg. A 5 mm trocar was then placed. An additional 5 mm suprapubic trocar was placed under direct visualization as well as a 12 mm left lower quadrant trocar under direct visualization. The appendix was inspected. It was acutely inflamed. The mesoappendix was dissected. As we were dissecting the mesoappendix a 1.5-2 cm pocket of purulence was seen. A small hole and the appendix was noted. The base of the appendix was divided using a linear 45 mm intestinal stapler. The mesentery itself was divided using the LigaSure device. The area was then irrigated. A small area of bleeding along the mesoappendix was controlled using a 12 mm clip diamond merchant. No further purulence or bleeding was seen. The appendix was brought out of the peritoneal cavity through the left lower quadrant trocar site with an Endo Catch bag. The fascia at the 12 mm site was closed using a Iglesia-Flaco 0 Vicryl stitch. The skin at all 3 sites was closed using 4-0 Monocryl sutures. Skin glue was then applied. DISPOSITION: Stable to recovery room
[2021-04-20] MEDS: D5-0.45% NACL WITH KCL 20MEQ/L 1,000 ML IV SCH (20:56)
[2021-04-20] MEDS: PIPERACILLIN-TAZOBACTAM 3.375 GM in SODIUM CHLORIDE 0.9% 100 ML IVPB SCH (21:00)
[2021-04-20] MEDS: DOCUSATE 100 MG CAP PO SCH (21:07)
[2021-04-20] MEDS: HEPARIN SODIUM,PORCINE/PF 5,000 UNIT/0.5 ML SYRINGE SQ SCH (23:18)
[2021-04-21] MEDS: PIPERACILLIN-TAZOBACTAM 3.375 GM in SODIUM CHLORIDE 0.9% 100 ML IVPB SCH ×3 (03:33→21:00)
[2021-04-21] MEDS: HYDROcodone/APAP 5-325MG 1 EACH TAB PO PRN ×4 (06:00→21:57)
[2021-04-21] MEDS: D5-0.45% NACL WITH KCL 20MEQ/L 1,000 ML IV SCH ×2 (06:00→16:32)
[2021-04-21] MEDS: DOCUSATE 100 MG CAP PO SCH ×2 (07:39→21:57)
[2021-04-21] MEDS: HEPARIN SODIUM,PORCINE/PF 5,000 UNIT/0.5 ML SYRINGE SQ SCH ×3 (07:39→21:58)
--- NOTE | 2021-04-21 08:51 | P.CONS ---
History of Present Illness - Reason for Consult Medical management - Chief Complaint Abdominal pain - History of Present Illness The patient is here essentially for right lower quadrant pain with some significant nausea. Evaluation emergency room did show acute appendicitis. She is postop day #1 for appendicitis. She is tolerating clear liquids but no voiding difficulty stated. No fever or chills. Review of Systems Constitutional: Denies chills, Denies fever Eyes: denies blurred vision, denies pain Ears, nose, mouth and throat: Denies headache, Denies sore throat Cardiovascular: Denies chest pain, Denies shortness of breath Respiratory: Denies cough Genitourinary: Denies dysuria, Denies hematuria Past Medical History Past Medical History: No Reported History Additional Past Medical History / Comment(s): stomach pains History of Any Multi-Drug Resistant Organisms: None Reported Past Surgical History: Section, Cholecystectomy Additional Past Surgical History / Comment(s): uterine ablation Past Anesthesia/Blood Transfusion Reactions: No Reported Reaction Past Psychological History: No Psychological Hx Reported Smoking Status: Never smoker - Past Family History Mother Family Medical History: AFIB, Cancer Additional Family Medical History / Comment(s): skin CA Father Family Medical History: AFIB Medications and Allergies Home Medications Medication Instructions Recorded Confirmed Type Ubrogepant [Ubrelvy] 50 mg PO DAILY PRN 01/11/20 04/20/21 History Allergies Allergy/AdvReac Type Severity Reaction Status Date / Time No Known Allergies Allergy Verified 04/20/21 15:45 Physical Exam Vitals: Vital Signs Temp Pulse Pulse Pulse Resp BP BP 04/21/21 07:25 98.4 F 63 18 101/70 04/21/21 01:15 98.2 F 90 16 109/72 04/20/21 21:45 86 111/75 04/20/21 20:45 85 106/74 04/20/21 20:15 88 111/75 04/20/21 20:00 18 04/20/21 19:45 89 114/73 04/20/21 19:30 87 103/70 04/20/21 19:16 87 18 111/62 04/20/21 19:15 84 111/74 04/20/21 19:01 85 18 121/67 04/20/21 19:00 91 119/77 04/20/21 18:46 75 18 127/71 04/20/21 18:41 98.9 F 89 14 120/75 04/20/21 18:31 98.5 F 74 16 140/66 04/20/21 17:00 100.1 F H 108 H 20 134/82 04/20/21 14:59 99 20 121/84 04/20/21 11:04 98.3 F 108 H 18 125/75 Pulse Ox 04/21/21 07:25 97 04/21/21 01:15 96 04/20/21 21:45 94 L 04/20/21 20:45 95 04/20/21 20:15 92 L 04/20/21 20:00 04/20/21 19:45 93 L 04/20/21 19:30 89 L 04/20/21 19:16 92 L 04/20/21 19:15 87 L 04/20/21 19:01 93 L 04/20/21 19:00 91 L 04/20/21 18:46 99 04/20/21 18:41 90 L 04/20/21 18:31 100 04/20/21 17:00 96 04/20/21 14:59 100 04/20/21 11:04 98 Intake and Output 04/20/21 04/21/21 04/21/21 22:59 06:59 14:59 Intake Total 950 Output Total 5 Balance 945 Intake: IV 950 Output: Estimated Blood Loss 5 Other: Voiding Method Toilet # Voids 1 1 Weight 88.451 kg - Constitutional General appearance: no acute distress - EENT Eyes: EOMI - Neck Neck: no lymphadenopathy - Respiratory Respiratory: bilateral: CTA - Cardiovascular Rhythm: regular Heart sounds: normal: S1, S2 Abnormal Heart Sounds: no S3 Gallop - Gastrointestinal General gastrointestinal: soft, no tenderness - Psychiatric Psychiatric: A&O x's 3 Results CBC & Chem 7: 04/20/21 11:43 04/20/21 11:43 Labs: Abnormal Lab Results - Last 24 Hours (Table) 04/20/21 04/20/21 04/20/21 Range/Units 11:43 11:43 11:43 WBC 11.6 H (3.8-10.6) k/uL Neutrophils # 9.4 H (1.3-7.7) k/uL BUN 6 L (7-17) mg/dL Glucose 120 H (74-99) mg/dL AST 156 H (14-36) U/L ALT 173 H (4-34) U/L Urine Protein 1+ H (Negative) Urine Bacteria Rare H (None) /hpf Urine Mucus Moderate H (None) /hpf Assessment and Plan (1) Acute appendicitis Current Visit: Yes Status: Acute Code(s): K35.80 - UNSPECIFIED ACUTE APPENDICITIS SNOMED Code(s): 27392642 (2) History of migraine Current Visit: Yes Status: Acute Code(s): Z86.69 - PERSONAL HISTORY OF DIS OF THE NERVOUS SYS AND SENSE ORGANS SNOMED Code(s): 255220109 Plan: Advance diet per surgery. Anticipate discharge later today. Appreciate consultation. We will continue to follow as necessary.
[2021-04-21 09:04] LABS: Basophils # (A) 0.02 X 10*3/uL (0.00-0.10); Basophils % (A) 0.2 %; Eosinophils # (A) 0.01 X 10*3/uL (0.04-0.35); Eosinophils % (A) 0.1 %; HCT 34.1 % (37.2-46.3); Immature Grans, Automated 0.3 %; Lymphocytes # (A) 1.01 X 10*3/uL (0.90-5.00); Lymphocytes % (A) 11.7 %; MCH 29.3 pg (27.0-32.0); MCHC 32.3 g/dL (32.0-37.0); MCV 90.9 fL (80.0-97.0); Mean Platelet Volume 10.4 fL (9.5-12.2); Monocytes # (A) 0.82 X 10*3/uL (0.20-1.00); Monocytes % (A) 9.5 %; NRBC Per 100 WBC 0 /100 WBCS (0.0-0.0); Neutrophils # (A) 6.76 X 10*3/uL (1.80-7.70); Neutrophils % (A) 78.2 %; Platelet Count 224 X 10*3/uL (140-440); RBC 3.75 X 10*6/uL (4.10-5.20); RDW 13.2 % (11.5-14.5); WBC 8.65 X 10*3/uL (4.50-10.00)
[2021-04-21 09:13] LABS: African American GFR (CKD) 134.5 (60.0-200.0); Albumin 3.7 g/dL (3.8-4.9); Albumin/Globulin Ratio 1.95 (1.60-3.17); Anion Gap 10.7 mmol/L (10.00-18.00); BUN/Creat Ratio 9.6 Ratio (12.00-20.00); Blood Urea Nitrogen 4.8 mg/dL (9.0-27.0); Calcium 8.3 mg/dL (8.7-10.3); Carbon Dioxide 21.3 mmol/L (20.0-27.5); Globulin 1.9 g/dL (1.6-3.3); Non-African American GFR(CKD) 116.1 (60.0-200.0); Potassium 4.2 mmol/L (3.5-5.5); Total Bilirubin 0.5 mg/dL (0.30-1.20); Total Protein 5.6 g/dL (6.2-8.2)
--- NOTE | 2021-04-21 14:54 | P.PN ---
<Nasima Locke - Last Filed: 04/21/21 14:49> Subjective Progress Note Date: 04/21/21 CHIEF COMPLAINT: Contained ruptured Acute appendicitis HISTORY OF PRESENT ILLNESS: Postop day #1 Status post laparoscopic appendectomy. Patient complained of abdominal pain this morning. She just received pain medication which she reports started to help. She denies any nausea or vomiting. Denies any flatus or bowel movement. Afebrile. WBC 11.6 down to 8.65 hemoglobin 11 down from 14 and platelets are 224 creatinine 0.5 elevated LFTs PHYSICAL EXAM: VITAL SIGNS: Reviewed. GENERAL: Well-developed in no acute distress. HEENT: No sclera icterus. Extraocular movements grossly intact. Moist buccal mucosa. Head is atraumatic, normocephalic. ABDOMEN: Soft. Nondistended. Tenderness with palpation at incision sites. In cision sites clean dry and intact. NEUROLOGIC: Alert and oriented. Cranial nerves II through XII grossly intact. ASSESSMENT: 1. Contained ruptured acute appendicitis status post laparoscopic appendectomy PLAN: -Continue antibiotics -Continue pain medication as needed -Continue clear liquid diet and advance as tolerated -Continue ice packs as needed -Encouraged patient to ambulate -DVT prophylaxis subcu heparin and GI prophylaxis Pepcid Physician Inserting Machine Operator note has been reviewed by physician. Signing provider agrees with the documented findings, assessment, and plan of care. Objective - Vital Signs Vital signs: Vital Signs Temp 98.2 F 04/21/21 14:02 Pulse 67 04/21/21 14:02 Resp 16 04/21/21 14:02 BP 102/70 04/21/21 14:02 Pulse Ox 98 04/21/21 14:02 Intake & Output 04/20/21 04/21/21 04/21/21 18:59 06:59 18:59 Intake Total 750 200 600 Output Total 5 Balance 745 200 600 Weight 88.451 kg Intake: IV 750 200 Oral 600 Output: Estimated Blood Loss 5 Other: Voiding Method Toilet # Voids 1 3 - Labs CBC & Chem 7: 04/21/21 05:36 04/21/21 05:36 Labs: Abnormal Lab Results - Last 24 Hours (Table) 04/21/21 04/21/21 Range/Units 05:36 05:36 RBC 3.75 L (4.10-5.20) X 10*6/uL Hgb 11.0 L (12.0-15.0) g/dL Hct 34.1 L (37.2-46.3) % Eosinophils # 0.01 L (0.04-0.35) X 10*3/uL BUN 4.8 L (9.0-27.0) mg/dL Creatinine 0.5 L (0.6-1.5) mg/dL BUN/Creatinine Ratio 9.60 L (12.00-20.00) Ratio Glucose 131 H (70-110) mg/dL Calcium 8.3 L (8.7-10.3) mg/dL AST 131 H (13-35) U/L ALT 237 H (8-44) U/L Total Protein 5.6 L (6.2-8.2) g/dL Albumin 3.7 L (3.8-4.9) g/dL <Carlos Navarro - Last Filed: 04/21/21 16:23> Subjective I have personally seen and examined the patient, reviewed the AUTOMATIC OUTSOLE CUTTER /PAs history, exam and MDM and agree with the assessment and plan as written. Based on total visit time, I have performed more than 50% of the visit. As above: Patient doing well today. She has not passed any flatus or bowel movement however. Tolerating liquid diet. Complains of more pain in the left lower abdomen than the right. Labs noted. Continue slowly advancing diet. Hopefully discharge tomorrow morning. Objective - Vital Signs Vital signs: Vital Signs Temp 98.2 F 04/21/21 14:02 Pulse 67 04/21/21 14:02 Resp 16 04/21/21 14:02 BP 102/70 04/21/21 14:02 Pulse Ox 98 04/21/21 14:02 Intake & Output 04/20/21 04/21/21 04/21/21 18:59 06:59 18:59 Intake Total 750 200 950 Output Total 5 Balance 745 200 950 Weight 88.451 kg Intake: IV 750 200 Oral 950 Output: Estimated Blood Loss 5 Other: Voiding Method Toilet # Voids 1 3 - Labs CBC & Chem 7: 04/21/21 05:36 04/21/21 05:36 Labs: Abnormal Lab Results - Last 24 Hours (Table) 04/21/21 04/21/21 Range/Units 05:36 05:36 RBC 3.75 L (4.10-5.20) X 10*6/uL Hgb 11.0 L (12.0-15.0) g/dL Hct 34.1 L (37.2-46.3) % Eosinophils # 0.01 L (0.04-0.35) X 10*3/uL BUN 4.8 L (9.0-27.0) mg/dL Creatinine 0.5 L (0.6-1.5) mg/dL BUN/Creatinine Ratio 9.60 L (12.00-20.00) Ratio Glucose 131 H (70-110) mg/dL Calcium 8.3 L (8.7-10.3) mg/dL AST 131 H (13-35) U/L ALT 237 H (8-44) U/L Total Protein 5.6 L (6.2-8.2) g/dL Albumin 3.7 L (3.8-4.9) g/dL Assessment and Plan (1) Acute appendicitis Current Visit: Yes Status: Acute Code(s): K35.80 - UNSPECIFIED ACUTE APPENDICITIS SNOMED Code(s): 86158824
[2021-04-21] MEDS: FAMOTIDINE 20 MG TAB PO SCH (21:57)
[2021-04-22] MEDS: PIPERACILLIN-TAZOBACTAM 3.375 GM in SODIUM CHLORIDE 0.9% 100 ML IVPB SCH ×3 (02:53→19:34)
[2021-04-22] MEDS: HYDROcodone/APAP 5-325MG 1 EACH TAB PO PRN ×3 (02:54→17:21)
[2021-04-22] MEDS: D5-0.45% NACL WITH KCL 20MEQ/L 1,000 ML IV SCH ×3 (02:54→17:14)
[2021-04-22] MEDS: HEPARIN SODIUM,PORCINE/PF 5,000 UNIT/0.5 ML SYRINGE SQ SCH ×3 (08:08→19:36)
[2021-04-22] MEDS: FAMOTIDINE 20 MG TAB PO SCH ×2 (08:09→19:35)
[2021-04-22] MEDS: DOCUSATE 100 MG CAP PO SCH ×2 (08:09→19:35)
--- NOTE | 2021-04-22 14:22 | P.PN ---
Subjective Progress Note Date: 04/22/21 CHIEF COMPLAINT: Contained ruptured Acute appendicitis HISTORY OF PRESENT ILLNESS: Postop day #2 Status post laparoscopic appendectomy. Patient does complain of some abdominal pain more with movement. Still has had no flatus or bowel movement. She does feel bloated and did have some nausea this morning. Also complains of blurry vision. Afebrile. No new labs PHYSICAL EXAM: VITAL SIGNS: Reviewed. GENERAL: Well-developed in no acute distress. HEENT: No sclera icterus. Extraocular movements grossly intact. Moist buccal mucosa. Head is atraumatic, normocephalic. ABDOMEN: Soft. Mildly distended. Incision sites clean dry and intact. NEUROLOGIC: Alert and oriented. Cranial nerves II through XII grossly intact. ASSESSMENT: 1. Contained ruptured acute appendicitis status post laparoscopic appendectomy 2. Elevated LFTs 3. Blurry vision likely secondary to scopolamine patch PLAN: -Continue to observe patient one more day. Awaiting patient to have flatus. -Continue antibiotics -Discontinue scopolamine patch due to blurry vision -Patient has washed her neck and her hands after discontinuation of patch -Continue pain medication as needed -Advance diet as tolerated -Continue ice packs as needed -Encouraged patient to ambulate -DVT prophylaxis subcu heparin and GI prophylaxis Pepcid Physician Patient Account Specialist note has been reviewed by physician. Signing provider agrees with the documented findings, assessment, and plan of care. Objective - Vital Signs Vital signs: Vital Signs Temp 98.0 F 04/22/21 07:38 Pulse 67 04/22/21 14:00 Resp 16 04/22/21 14:00 BP 99/65 04/22/21 07:38 Pulse Ox 92 L 04/22/21 07:38 Intake & Output 04/21/21 04/22/21 04/22/21 18:59 06:59 18:59 Intake Total 950 300 Balance 950 300 Intake: Oral 950 300 Other: Voiding Method Toilet # Voids 3 0 5 - Labs CBC & Chem 7: 04/21/21 05:36 04/21/21 05:36
[2021-04-23] MEDS: HYDROcodone/APAP 5-325MG 1 EACH TAB PO PRN (02:54)
[2021-04-23] MEDS: PIPERACILLIN-TAZOBACTAM 3.375 GM in SODIUM CHLORIDE 0.9% 100 ML IVPB SCH (02:55)
[2021-04-23] MEDS: D5-0.45% NACL WITH KCL 20MEQ/L 1,000 ML IV SCH (07:26)
[2021-04-23] MEDS: DOCUSATE 100 MG CAP PO SCH (07:32)
[2021-04-23] MEDS: HEPARIN SODIUM,PORCINE/PF 5,000 UNIT/0.5 ML SYRINGE SQ SCH (07:32)
[2021-04-23] MEDS: FAMOTIDINE 20 MG TAB PO SCH (07:32)
[2021-04-23 07:35] VITALS: BP 119/76; RESP 18; TEMP 98.1
[2021-04-23 09:33] VITALS: PULSE 63
[2021-04-23 11:15] LABS: Basophils # (A) 0.1 k/uL (0-0.2); Basophils % (A) 1 %; Eosinophils # (A) 0.1 k/uL (0-0.7); Eosinophils % (A) 3 %; HCT 34.7 % (34.0-46.0); Lymphocytes # (A) 1.1 k/uL (1.0-4.8); Lymphocytes % (A) 29 %; MCH 30.5 pg (25.0-35.0); MCHC 32.8 g/dL (31.0-37.0); MCV 92.8 fL (80.0-100.0); Mean Platelet Volume 7.7; Monocytes # (A) 0.3 k/uL (0-1.0); Monocytes % (A) 9 %; Neutrophils # (A) 2.1 k/uL (1.3-7.7); Neutrophils % (A) 57 %; Platelet Count 268 k/uL (150-450); RBC 3.74 m/uL (3.80-5.40); RDW 12.8 % (11.5-15.5); WBC 3.7 k/uL (3.8-10.6)
[2021-04-23 11:32] LABS: HGB 11.4 gm/dL (11.4-16.0)
--- NOTE | 2021-04-23 13:03 | P.DS ---
Providers Date of admission: 04/20/21 14:55 Expected date of discharge: 04/23/21 Attending physician: Carlos Navarro Consults: 04/20/21 18:38 Consult Physician Routine Consulting Provider: Madi Quintana Consult Reason/Comments: Medical management Do you want consulting provider notified?: Yes Primary care physician: Madi Quintana Hospital Course: Discharge diagnosis 1. Contained ruptured acute appendicitis status post laparoscopic appendectomy 2. Elevated LFTs 3. Blurry vision likely secondary to scopolamine patch Hospital course This is a 45-year-old female who presented to the hospital complaining of upper abdominal pain that radiated down to the right lower abdomen. Patient has had episodes similar to this however normally does not involve the right lower quadrant. She did have an episode of vomiting. Some loose stools. CAT scan was obtained which demonstrated evidence of acute appendicitis. The patient has elevated liver enzymes as well. History of previous cholecystectomy. Patient status post laparoscopic appendectomy for a contained ruptured acute appendicitis. Patient tolerated surgery well. Her pain is controlled. She is having bowel movement and flatus. She is ambulating. She is afebrile. Her incision sites are clean dry and intact. She'll be discharged home with antibiotics. Her vision has also shown improvement after discontinuing the scopolamine patch. She is stable for discharge. Please refer to chart for any further details. Physician Special Needs Nanny note has been reviewed by physician. Signing provider agrees with the documented findings, assessment, and plan of care. Patient Condition at Discharge: Stable Plan - Discharge Summary Discharge Rx Participant: No New Discharge Prescriptions: New Amoxicillin/Potassium Clav [Augmentin 875-125 Tablet] 1 tab PO Q12HR 7 Days #14 tab Docusate [Colace] 100 mg PO BID #30 capsule HYDROcodone/APAP 5-325MG [Brillion 5-325] 1 tab PO Q6HR PRN 3 Days #12 tab PRN Reason: Pain Continue Ubrogepant [Ubrelvy] 50 mg PO DAILY PRN PRN Reason: Migraine Headache Discharge Medication List Ubrogepant [Ubrelvy] 50 mg PO DAILY PRN 01/11/20 [History] Docusate [Colace] 100 mg PO BID #30 capsule 04/21/21 [Rx] HYDROcodone/APAP 5-325MG [Brillion 5-325] 1 tab PO Q6HR PRN 3 Days #12 tab 04/21/21 [Rx] Amoxicillin/Potassium Clav [Augmentin 875-125 Tablet] 1 tab PO Q12HR 7 Days #14 tab 04/22/21 [Rx] Follow up Appointment(s)/Referral(s): Carlos Navarro MD [Medical Doctor] - 1 Week Madi Quintana MD [Primary Care Provider] - 1-2 days Patient Instructions/Handouts: *Surgery [facility] - Scopalamine Patch Instructions Activity/Diet/Wound Care/Special Instructions: No driving while taking Brillion No lifting over 10 pounds You may shower. No soaking or tub baths for 2 weeks Very light activity until you are reevaluated at your follow up appointment with your surgeon Discharge Disposition: HOME SELF-CARE
--- NOTE | 2021-04-23 13:24 | P.PN ---
Subjective Principal diagnosis: Status post appendicitis This is a continue pressure 45-year-old white female is postop day #3 for acute appendicitis. She does have hepatic steatosis liver enzymes were discussed with the patient. We will do appropriate retest when she follows up with me after her recovery. No voiding difficulties. She is not a typical alcohol user. Objective - Vital Signs Vital signs: Vital Signs Temp 98.1 F 04/23/21 07:00 Pulse 63 04/23/21 08:00 Resp 18 04/23/21 08:00 BP 119/76 04/23/21 07:00 Pulse Ox 95 04/23/21 07:00 Intake & Output 04/22/21 04/23/21 04/23/21 18:59 06:59 18:59 Intake Total 418 120 Balance 418 120 Intake: Oral 418 120 Other: Voiding Method Toilet Toilet Toilet # Voids 3 1 1 # Bowel Movements 0 - Constitutional General appearance: Present: average body habitus - EENT Eyes: Absent: abnormal pupil - Neck Neck: Absent: lymphadenopathy - Respiratory Respiratory: bilateral: CTA - Cardiovascular Rhythm: regular Heart sounds: normal: S1, S2 Abnormal Heart Sounds: Absent: S3 Gallop - Gastrointestinal General gastrointestinal: Present: soft. Absent: tenderness - Integumentary Integumentary: Present: normal - Psychiatric Psychiatric: Present: A&O x's 3 - Labs CBC & Chem 7: 04/23/21 10:41 04/21/21 05:36 Labs: Abnormal Lab Results - Last 24 Hours (Table) 04/23/21 Range/Units 10:41 WBC 3.7 L (3.8-10.6) k/uL RBC 3.74 L (3.80-5.40) m/uL Assessment and Plan (1) Acute appendicitis Current Visit: Yes Status: Acute Code(s): K35.80 - UNSPECIFIED ACUTE APPENDICITIS SNOMED Code(s): 70818259 (2) History of migraine Current Visit: Yes Status: Acute Code(s): Z86.69 - PERSONAL HISTORY OF DIS OF THE NERVOUS SYS AND SENSE ORGANS SNOMED Code(s): 258083692 Plan: Advance diet per surgery. Anticipate discharge later today. Appreciate consultation. We will continue to follow as necessary. Discussed with the patient liver enzyme elevation. Will follow-up as an outpatient and I do suspect possible Gilbert's syndrome but we will elucidate this by appropriate testing.
== END 2021-04-23 13:56 | disposition home or self-care (01) ==
LOC: EC 10:34 → 6NMEDSUR 14:55
PROVIDERS: ADMIT Surgery; ATTEND Surgery
DX: K35.32 Acute appendicitis with perforation, localized peritonitis, and gangrene, without abscess (principal); R79.89 Other specified abnormal findings of blood chemistry; H53.8 Other visual disturbances; G43.909 Migraine, unspecified, not intractable, without status migrainosus; Z90.49 Acquired absence of other specified parts of digestive tract; Z71.9 Counseling, unspecified; Z82.49 Family history of ischemic heart disease and other diseases of the circulatory system; Z80.8 Family history of malignant neoplasm of other organs or systems
CPT/HCPCS: 96360; 96361; 99285; 36415; 88304; 80053 ×2; 82150; 83605; 83690; 85025 ×3; 81001; 81025; 74018; 74177; 44970; G0378 ×4; J2543 ×4; J2250; J1644 ×5; J1100; J2710; J2405; J2001; J3010; J1170; J1885; J0330; J2704; Q9967

== ENCOUNTER → 2021-10-20 | Outpatient (CLI) | payer BC ==
--- NOTE | 2021-10-20 10:18 | MR ---
EXAMINATION TYPE: MR brain and iac wo/w con DATE OF EXAM: 10/20/2021 COMPARISON: LEFT HEARING LOSS, HEADACHE HISTORY: LEFT HEARING LOSS, HEADACHE TECHNIQUE: Multiplanar, multisequence images of the brain and brainstem is performed without and with IV contras t, utilizing 9 mL intravenous Gadavist . FINDINGS: Diffusion weighted images demonstrate no evidence of a recent infarct or other diffusion ab normality. There is no extra-axial fluid collection or significant white matter signal abnormality. The ventricular system and cisternal spaces are normal in size and appearance. The brain volume is age appropriate. Midline structures demonstrate normal morphology. The craniocervical junction appears within normal limits. Post contrast images demonstrate no abnormal enhancement. The dural venous sinuses appear pa tent. The visualized sinuses are clear and the globes are intact. There is a partially empty sella. Changes of mild chronic sinusitis with nasal septal lesion. Cerebel lar tonsils low-lying in position at the level of the foramen magnum. Mastoid air cells are clear. Along the anterior interhemispheric fissure paracentral to the left there is an extradural enhancing mass measuring 1.6 x 0.9 cm compatible with a meningioma. IMPRESSION: 1. Along the superior interhemispheric fissure paracentral to left there is a extra-axial mass measur ing 1.6 x 0.9 cm compatible with meningioma. 2. No pathologic enhancement with regard to the seventh\VIII nerve complex to suggest acoustic schwan noma. No cerebellopontine angle mass. 3. Mild chronic sinusitis. 4 low-lying cerebellar tonsils at the level of the foramen magnum without evidence of tonsillar beaking.
== END | disposition home or self-care (01) ==
LOC: RADMRIMAIN 08:58
PROVIDERS: ATTEND Otolaryngology
DX: H91.92 Unspecified hearing loss, left ear (principal); J32.9 Chronic sinusitis, unspecified
CPT/HCPCS: 70553; A9585

== ENCOUNTER → 2022-04-28 | Outpatient (CLI) | payer BC ==
--- NOTE | 2022-04-28 10:49 | CA ---
Stress Echo Report Meka Ortiz Age: 46 Gender: F : 1975 Exam Date: 04/28/2022 09:26 Exam Location: [facility] Ht (in): 64 Wt (lb): 198 Ordering Physician: Madi Quintana MD Referring Physician: ROSHAN,, Senior Product Marketing Manager: Yina Gamboa RDCS Technologist Procedure CPT: Indication: R07.89 chest pain ICD-9 Codes: Rhythm: Patient History: Hyperlipidemia Cardiac Medications: NONE Medications in past 24 hours: Contrast: Stress Results Protocol: Phil Total dose(mL): Exercise Duration (min:sec): [address] Depression (mm): Angina Score: Bustamante Score: METS: 10.5 Resting HR: 83 Resting BP: 105 / 58 Peak HR: 158 Peak BP: 152 / 72 Max Predicted HR: 173 91 % Max Predicted HR Target HR: 147 Double Product: [id number] Stress Summary: BP Response: Normal Reason for Termination: Reached target heart rate or work-load Cardiac Symptoms: Test terminated after reaching target heart rate (85% max predicted) ECG Analysis Resting ECG: Stress ECG: Arrhythmia: Echo Analysis Resting Echo: Peak Echo Analysis: MEASUREMENTS (Male/Female) Normal Values CONCLUSIONS Excellent exercise tolerance Normal EKG and echo in response to exercise Essentially normal stress test for the patient Dr. Silvino Lynne MD (Electronically Signed) Final Date: 28 April 2022 10:48
== END | disposition home or self-care (01) ==
LOC: RADNMMAIN 09:05
PROVIDERS: ATTEND Family Medicine
DX: R07.89 Other chest pain (principal); E78.5 Hyperlipidemia, unspecified
CPT/HCPCS: 93351

== ENCOUNTER → 2023-01-19 | Outpatient (CLI) | payer BC ==
--- NOTE | 2023-01-20 08:19 | MM ---
Reason for Exam: Screening (asymptomatic). Last mammogram was performed 2 year(s) and 3 month(s) ago. Patient History: Menarche at age 11. First Full-Term at age 28. Patient has history of breast feeding. Patient used Hormonal Contraceptives for 10 years. Maternal aunt had breast cancer, age 40. Last menstrual period: 12/27/2022 Risk Values: Caro 5 year model risk: 1.0%. NCI Lifetime model risk: 10.2%. Prior Study Comparison: 05/07/2015 Bilateral Screening Mammogram, [facility]. 11/23/2016 Bilateral Diagnostic Mammogram, [facility]. 10/08/2020 Bilateral Screening Mammogram, [facility]. Tissue Density: The breast tissue is heterogeneously dense. This may lower the sensitivity of mammography. Findings: Analyzed By CAD. There is no suspicious group of microcalcifications or new suspicious mass in either breast. Overall Assessment: Benign, BI-RAD 2 Management: Screening Mammogram of both breasts in 1 year. . Patient should continue monthly self-breast exams. A clinical breast exam by your physician is recommended on an annual basis. This exam should not preclude additional follow-up of suspicious palpable abnormalities. Note on Caro scores and lifetime risk: 1. A Caro score greater than 3% is considered moderate risk. If this is the case, consider specialist referral to assess eligibility for a risk reducing agent. 2. If overall lifetime risk for the development of breast cancer is 20% or higher, the patient may qualify for future screening with alternating mammogram and breast MRI. Electronically signed and approved by: Jonathan Bowman M.D. Radiologis
== END | disposition home or self-care (01) ==
LOC: RADMAMWWP 10:46
PROVIDERS: ATTEND Family Medicine
DX: Z12.31 Encounter for screening mammogram for malignant neoplasm of breast (principal); Z80.3 Family history of malignant neoplasm of breast
CPT/HCPCS: 77063; 77067

== ENCOUNTER → 2023-08-05 | Outpatient (CLI) | payer BC ==
--- NOTE | 2023-08-08 12:14 | US ---
EXAMINATION TYPE: US pelvic complete DATE OF EXAM: 08/05/2023 COMPARISON: 05/26/2016 CLINICAL INDICATION: Female, 48 years old with history of N83.00 FOLLICULAR CYST OF OVARY, UNSPECIFIE D SIDE; no pain today, irregular cycles, ablation a few years ago, CT show follicular cyst TECHNIQUE: TA. Transabdominal sonographic images of the pelvis were acquired. Date of LMP: June - EXAM MEASUREMENTS: Uterus: 8.4 x 5.0 x 4.4 cm Endometrial Stripe: 0.5 cm Right Ovary: 2.8 x 2.3 x 1.8 cm Left Ovary: 3.0 x 1.9 x 1.5 cm 1. Uterus: Anteverted wnl 2. Endometrium: wnl 3. Right Ovary: follicles under 1cm seen 4. Left Ovary: follicles under 1.5cm seen 5. Bilateral Adnexa: wnl 6. Posterior cul-de-sac: wnl IMPRESSION: 1. No evidence for acute process. 2. Endometrium within normal limits for thickness. 3. Bilateral ovarian dominant follicles.
== END | disposition home or self-care (01) ==
LOC: RADUSWWP 15:55
PROVIDERS: ATTEND Family Medicine
DX: N83.02 Follicular cyst of left ovary (principal); N83.01 Follicular cyst of right ovary
CPT/HCPCS: 76856

== ENCOUNTER → 2024-04-11 | Outpatient (CLI) | payer BC ==
--- NOTE | 2024-04-11 10:21 | MR ---
INDICATION: Patient age:Female; 48 years old; Reason for study: D32.0 BENIGN NEOPLASM OF CEREBRAL MENINGES; [facility]. COMPARISON: MRI brain 10/06/2022, MRI brain and IAC 10/20/2021. TECHNIQUE: Multi planar, multi sequence imaging was performed through the brain. The patient was then given 10 cc of Gadobutrol intravenously and multi planar, T1 fat-saturation images were obtained. FINDINGS: Redemonstration of homogeneously enhancing extra-axial left parasagittal mass overlying the left fron flip convexity. This measures 1.6 x 1.1 x 1.1 cm when measured with similar technique. Consider stable . Shows intermediate to mildly increased T2 signal and avid homogeneous postcontrast enhancement with dural tail. No other new enhancing lesion is identified. The tomlin-white junctions, ventricular system, basal cisterns appear unremarkable. Age-appropriate cer ebral parenchymal volume. Diffusion-weighted imaging shows no evidence of restricted diffusion to sug gest acute/subacute infarct. Intracranial arterial flow voids are maintained. Midline structures show no abnormality. The susceptibility weighted images do not reveal any evidence for micro-hemorrhage. The bone marrow signal is within normal limits. The paranasal sinuses and globes are unremarkable. L eftward nasal septal deviation. IMPRESSION: 1. Stable 1.6 cm meningioma in the left parasagittal superior region when measured with similar techn ique. No new enhancing lesions. 2. No acute/subacute ischemia. [facility], , 04/11/2024 10:19 AM
== END | disposition home or self-care (01) ==
LOC: RADMRIMAIN 08:55
PROVIDERS: ATTEND Psychiatry & Neurology Neurology
DX: D32.0 Benign neoplasm of cerebral meninges (principal); G93.89 Other specified disorders of brain
CPT/HCPCS: 70553; A9585